=== PATIENT | male | born 1960 | race Hispanic/Latino ===

== ENCOUNTER 2017-03-06 12:09 | Inpatient (IN) | payer MEDICARE ==
[~2017-03-06] VITALS: Ht 157.5 cm; Wt 149.7 kg
[2017-03-06] MEDS ORDERED: IPRATROPIUM/ALBUTEROL SULFATE 3 ML SOLUTION IH ONE (12:32)
[2017-03-06] MEDS ORDERED: ALBUTEROL SULFATE 0.083% 2.5 MG/3 ML INH IH ONE (12:42)
[2017-03-06] MEDS ORDERED: METHYLPREDNISOLONE SOD SUCC 125MG/2ML VIAL ONE (12:43)
[2017-03-06 12:51] LABS: BASOPHILS % (AUTO) 0.9 % (0.0-5.0); EOSINOPHILS % (AUTO) 0.8 % (0.0-8.0); HEMATOCRIT 50.3 % (42-54); LYMPHOCYTES % (AUTO) 19.6 % (21.0-51.0); MEAN CORPUSCULAR HEMOGLOBIN 30.3 pg (27.0-33.0); MEAN CORPUSCULAR VOLUME 91.8 fL (79-99); MONOCYTES % (AUTO) 9.7 % (3.0-13.0); PLATELET COUNT (AUTO) 227 K/uL (130-400); RED BLOOD CELL COUNT(AUTO) 5.48 MIL/uL (4.50-6.20); RED CELL DISTRIBUTION WIDTH 14.7 % (11.0-15.5); WHITE BLOOD COUNT (AUTO) 10.4 K/uL (4.8-10.8)
[2017-03-06 13:00] LABS: ABG BASE EXCESS 1.9 mmol/L (-2.0-3.0); ABG HCO3 31.2 mmol/L (21.0-28.0); ABG OXYGEN SATURATION 90.1 % (95.0-99.0); ABG PCO2 70 mmHg (35-48)
[2017-03-06 13:01] LABS: CREATININE 0.9 mg/dL (0.5-1.5); POTASSIUM 3.9 mmol/L (3.5-5.1)
[2017-03-06 13:05] LABS: INR 1.14 (0.85-1.15); PROTHROMBIN TIME 11.9 SEC (9.6-11.6)
[2017-03-06 13:11] LABS: APPEARANCE,URINE Clear (CLEAR); BILIRUBIN,URINE Negative (NEGATIVE); COLOR,URINE Yellow (YELLOW); GLUCOSE, URINE (UA) Negative (NEGATIVE); KETONES,URINE Negative (NEGATIVE); LEUKOCYTE ESTERASE ,URINE Negative (NEGATIVE); NITRATE,URINE Negative (NEGATIVE); OCCULT BLOOD,URINE Negative (NEGATIVE); PROTEIN,URINE Negative (NEGATIVE); UROBILINOGEN,URINE 0.2 mg/dL (0.2-1.0)
[2017-03-06 13:14] LABS: ALBUMIN 3.1 g/dL (3.5-5.0); BILIRUBIN,TOTAL 0.4 mg/dL (0.2-1.0); CREATINE KINASE MB 1.6 ng/mL (0.5-3.6); TOTAL PROTEIN, SERUM 7.9 g/dL (6.0-8.3)
[2017-03-06 13:50] LABS: B-TYPE NATRIURETIC PEPTIDE 340 pg/mL (0-100)
[2017-03-06] MEDS ORDERED: LACTULOSE 20 GM/30 ML UDCUP PO PRN (15:15)
[2017-03-06] MEDS ORDERED: FUROSEMIDE 10 MG/ML 4ML VIAL IV SCH (15:15)
[2017-03-06] MEDS ORDERED: MAG HYDROX/AL HYDROX/SIMETH ES 30 ML SUSP UDCUP PO PRN (15:15)
[2017-03-06] MEDS ORDERED: GUAIFENESIN-DM 200/20 MG 10 ML PO PRN (15:15)
[2017-03-06] MEDS ORDERED: ACETAMINOPHEN 325 MG TAB PO PRN ×2 (15:15)
[2017-03-06] MEDS ORDERED: ONDANSETRON HCL 4 MG/2 ML VIAL IV PRN (15:15)
[2017-03-06] MEDS ORDERED: AZITHROMYCIN 250 MG TABLET PO ONE (15:19)
[2017-03-06] MEDS ORDERED: FUROSEMIDE 10 MG/ML 4ML VIAL ONE (16:34)
[2017-03-06] MEDS ORDERED: ENOXAPARIN SODIUM 40 MG/0.4 ML SYRINGE SQ ONE (16:35)
[2017-03-06] MEDS ORDERED: LEVOFLOXACIN 500 MG/D5W 100 ML 100 ML ONE (16:35)
[2017-03-06 16:46] LABS: ABG BASE EXCESS 5.9 mmol/L (-2.0-3.0); ABG HCO3 37.2 mmol/L (21.0-28.0); ABG OXYGEN SATURATION 94.8 % (95.0-99.0); ABG PCO2 91 mmHg (35-48)
[2017-03-06] MEDS ORDERED: IOPAMIDOL-370 100 ML VIAL IV ONE (17:16)
[2017-03-06 19:00] VITALS: BP 157/83
[2017-03-06] MEDS: LEVOFLOXACIN 500 MG/D5W 100 ML 100 ML IV SCH (19:00)
[2017-03-06] MEDS: METHYLPREDNISOLONE SOD SUCC 40MG/ML 1ML IVP SCH ×2 (19:15→23:27)
[2017-03-06] MEDS: IPRATROPIUM/ALBUTEROL SULFATE 3 ML SOLUTION IH SCH ×2 (19:36→23:54)
[2017-03-06 20:00] VITALS: BP 152/79
[2017-03-06 20:18] LABS: ABG BASE EXCESS 6.5 mmol/L (-2.0-3.0); ABG HCO3 36.6 mmol/L (21.0-28.0); ABG OXYGEN SATURATION 93.3 % (95.0-99.0); ABG PCO2 81 mmHg (35-48)
[2017-03-06] MEDS: FUROSEMIDE 10 MG/ML 4ML VIAL IV SCH (20:54)
[2017-03-06] MEDS: FAMOTIDINE/PF 20 MG/2 ML VIAL IV SCH (20:54)
[2017-03-06 21:07] VITALS: BP 159/79
[2017-03-06 22:00] VITALS: BP 154/80
[2017-03-06 23:05] VITALS: BP 135/75
[2017-03-07] VITALS (24 sets, daily range): BP systolic 90–158; BP diastolic 41–105
[2017-03-07 04:11] LABS: ABG BASE EXCESS 11.3 mmol/L (-2.0-3.0); ABG PCO2 71 mmHg (35-48)
[2017-03-07 04:11] LABS: HEMATOCRIT 50.5 % (42-54); MEAN CORPUSCULAR HEMOGLOBIN 29.7 pg (27.0-33.0); MEAN CORPUSCULAR HGB CONC 32.4 g/dL (32.0-36.0); MEAN CORPUSCULAR VOLUME 91.4 fL (79-99); PLATELET COUNT (AUTO) 246 K/uL (130-400); RED BLOOD CELL COUNT(AUTO) 5.53 MIL/uL (4.50-6.20); RED CELL DISTRIBUTION WIDTH 14.3 % (11.0-15.5); WHITE BLOOD COUNT (AUTO) 6.2 K/uL (4.8-10.8)
[2017-03-07] MEDS: FUROSEMIDE 10 MG/ML 4ML VIAL IV SCH ×3 (04:17→20:04)
[2017-03-07 04:32] LABS: B-TYPE NATRIURETIC PEPTIDE 158 pg/mL (0-100)
[2017-03-07 04:39] LABS: POTASSIUM 4.2 mmol/L (3.5-5.1)
[2017-03-07] MEDS: METHYLPREDNISOLONE SOD SUCC 40MG/ML 1ML IVP SCH ×3 (06:18→23:27)
[2017-03-07] MEDS: IPRATROPIUM/ALBUTEROL SULFATE 3 ML SOLUTION IH SCH ×4 (06:18→23:34)
[2017-03-07] MEDS: FAMOTIDINE/PF 20 MG/2 ML VIAL IV SCH ×2 (08:49→20:04)
[2017-03-07] MEDS: ENOXAPARIN SODIUM 40 MG/0.4 ML SYRINGE SQ SCH (08:50)
[2017-03-07] MEDS: LEVOFLOXACIN 500 MG/D5W 100 ML 100 ML IV SCH (18:02)
[2017-03-08] VITALS (24 sets, daily range): BP systolic 113–170; BP diastolic 50–89
[2017-03-08 04:02] LABS: POTASSIUM 4.3 mmol/L (3.5-5.1)
[2017-03-08] MEDS: FUROSEMIDE 10 MG/ML 4ML VIAL IV SCH ×3 (04:47→20:45)
[2017-03-08] MEDS: METHYLPREDNISOLONE SOD SUCC 40MG/ML 1ML IVP SCH ×2 (07:01→14:11)
[2017-03-08] MEDS: IPRATROPIUM/ALBUTEROL SULFATE 3 ML SOLUTION IH SCH ×4 (07:22→23:29)
[2017-03-08 08:12] LABS: ABG BASE EXCESS 12.8 mmol/L (-2.0-3.0); ABG HCO3 42.7 mmol/L (21.0-28.0); ABG OXYGEN SATURATION 78.7 % (95.0-99.0); ABG PCO2 81 mmHg (35-48)
[2017-03-08] MEDS: FAMOTIDINE/PF 20 MG/2 ML VIAL IV SCH ×2 (09:05→20:45)
[2017-03-08] MEDS: ENOXAPARIN SODIUM 40 MG/0.4 ML SYRINGE SQ SCH (09:05)
[2017-03-08 12:21] LABS: ABG BASE EXCESS 14.5 mmol/L (-2.0-3.0); ABG HCO3 44.4 mmol/L (21.0-28.0); ABG OXYGEN SATURATION 92.6 % (95.0-99.0); ABG PCO2 81 mmHg (35-48)
[2017-03-08] MEDS: LEVOFLOXACIN 500 MG/D5W 100 ML 100 ML IV SCH (17:01)
[2017-03-09] VITALS (21 sets, daily range): BP systolic 126–174; BP diastolic 54–96
[2017-03-09] MEDS: METHYLPREDNISOLONE SOD SUCC 40MG/ML 1ML IVP SCH ×4 (00:21→22:40)
[2017-03-09 03:52] LABS: HEMATOCRIT 53.3 % (42-54); MEAN CORPUSCULAR HEMOGLOBIN 29.6 pg (27.0-33.0); MEAN CORPUSCULAR HGB CONC 32.2 g/dL (32.0-36.0); MEAN CORPUSCULAR VOLUME 91.7 fL (79-99); PLATELET COUNT (AUTO) 272 K/uL (130-400); RED BLOOD CELL COUNT(AUTO) 5.82 MIL/uL (4.50-6.20); RED CELL DISTRIBUTION WIDTH 14.4 % (11.0-15.5); WHITE BLOOD COUNT (AUTO) 10.6 K/uL (4.8-10.8)
[2017-03-09 04:09] LABS: POTASSIUM 3.9 mmol/L (3.5-5.1)
[2017-03-09 04:31] LABS: B-TYPE NATRIURETIC PEPTIDE 107 pg/mL (0-100)
[2017-03-09] MEDS: FUROSEMIDE 10 MG/ML 4ML VIAL IV SCH ×3 (05:44→20:19)
[2017-03-09] MEDS: IPRATROPIUM/ALBUTEROL SULFATE 3 ML SOLUTION IH SCH ×3 (06:53→19:03)
[2017-03-09 08:19] LABS: ABG HCO3 42.5 mmol/L (21.0-28.0); ABG PCO2 70 mmHg (35-48)
[2017-03-09] MEDS: FAMOTIDINE/PF 20 MG/2 ML VIAL IV SCH ×2 (10:16→20:18)
[2017-03-09] MEDS: ENOXAPARIN SODIUM 40 MG/0.4 ML SYRINGE SQ SCH (10:17)
[2017-03-09] MEDS: LEVOFLOXACIN 500 MG/D5W 100 ML 100 ML IV SCH (19:37)
[2017-03-10] VITALS (13 sets, daily range): BP systolic 115–169; BP diastolic 61–88
[2017-03-10] MEDS: IPRATROPIUM/ALBUTEROL SULFATE 3 ML SOLUTION IH SCH ×4 (00:26→19:31)
[2017-03-10 03:45] LABS: HEMATOCRIT 56.4 % (42-54); MEAN CORPUSCULAR HEMOGLOBIN 29.9 pg (27.0-33.0); MEAN CORPUSCULAR HGB CONC 33.2 g/dL (32.0-36.0); MEAN CORPUSCULAR VOLUME 90.1 fL (79-99); PLATELET COUNT (AUTO) 252 K/uL (130-400); RED BLOOD CELL COUNT(AUTO) 6.26 MIL/uL (4.50-6.20); RED CELL DISTRIBUTION WIDTH 14.6 % (11.0-15.5); WHITE BLOOD COUNT (AUTO) 9.9 K/uL (4.8-10.8)
[2017-03-10 03:54] LABS: POTASSIUM 3.9 mmol/L (3.5-5.1)
[2017-03-10] MEDS: FUROSEMIDE 10 MG/ML 4ML VIAL IV SCH ×3 (04:03→20:10)
[2017-03-10 04:05] LABS: B-TYPE NATRIURETIC PEPTIDE 75 pg/mL (0-100)
[2017-03-10] MEDS: METHYLPREDNISOLONE SOD SUCC 40MG/ML 1ML IVP SCH (06:28)
[2017-03-10] MEDS: FAMOTIDINE/PF 20 MG/2 ML VIAL IV SCH ×2 (09:10→20:10)
[2017-03-10] MEDS: ENOXAPARIN SODIUM 40 MG/0.4 ML SYRINGE SQ SCH (09:10)
[2017-03-10] MEDS: LISINOPRIL 10 MG TABLET PO SCH ×3 (10:20→22:45)
[2017-03-10] MEDS: SERTRALINE HCL 50 MG TABLET PO SCH (10:20)
[2017-03-11] MEDS: IPRATROPIUM/ALBUTEROL SULFATE 3 ML SOLUTION IH SCH ×5 (01:41→23:16)
[2017-03-11 03:00] VITALS: BP 99/56
[2017-03-11 04:04] LABS: CREATININE 1.6 mg/dL (0.5-1.5); POTASSIUM 3.6 mmol/L (3.5-5.1)
[2017-03-11] MEDS: FUROSEMIDE 10 MG/ML 4ML VIAL IV SCH (04:51)
[2017-03-11 07:00] VITALS: BP 106/47
[2017-03-11] MEDS: FUROSEMIDE 20 MG TABLET PO SCH ×2 (10:00→21:03)
[2017-03-11] MEDS: ENOXAPARIN SODIUM 40 MG/0.4 ML SYRINGE SQ SCH (10:11)
[2017-03-11] MEDS: SERTRALINE HCL 50 MG TABLET PO SCH (10:11)
[2017-03-11] MEDS: FAMOTIDINE/PF 20 MG/2 ML VIAL IV SCH ×2 (10:11→21:03)
[2017-03-11 11:00] VITALS: BP 100/63
[2017-03-11] MEDS ORDERED: HYDR-4064 PO (12:52)
[2017-03-11] MEDS ORDERED: ALPR1TAB7 PO (12:52)
[2017-03-11] MEDS ORDERED: BLOOD THINNER (12:55)
[2017-03-11] MEDS ORDERED: FURO20TA4 PO (12:55)
[2017-03-11] MEDS ORDERED: LISI-613 PO (12:55)
[2017-03-11 16:00] VITALS: BP 101/52
[2017-03-11 19:35] VITALS: BP 103/48
[2017-03-11 23:14] VITALS: BP 109/54
[2017-03-12 04:12] VITALS: BP 92/48
[2017-03-12 04:39] LABS: CREATININE 2.8 mg/dL (0.5-1.5); POTASSIUM 3.7 mmol/L (3.5-5.1)
[2017-03-12] MEDS: IPRATROPIUM/ALBUTEROL SULFATE 3 ML SOLUTION IH SCH ×3 (06:56→18:41)
[2017-03-12 07:00] VITALS: BP 100/61
[2017-03-12] MEDS: SERTRALINE HCL 50 MG TABLET PO SCH (08:47)
[2017-03-12] MEDS: FAMOTIDINE/PF 20 MG/2 ML VIAL IV SCH ×2 (08:47→22:00)
[2017-03-12] MEDS: ENOXAPARIN SODIUM 40 MG/0.4 ML SYRINGE SQ SCH (08:48)
[2017-03-12] MEDS ORDERED: FUROSEMIDE 20 MG TABLET ONE (08:51)
[2017-03-12 11:16] VITALS: BP 100/54
[2017-03-12 16:00] VITALS: BP 105/47
[2017-03-12] MEDS ORDERED: FUROSEMIDE 20 MG TABLET PO SCH (17:00)
[2017-03-12 19:36] VITALS: BP 132/75
[2017-03-12 19:39] LABS: CHLORIDE,URINE RANDOM 33 mmol/L (110-250); POTASSIUM,URINE RANDOM 9 mmol/L (25-125); SODIUM,URINE RANDOM 35 mmol/l (40-220)
[2017-03-12 23:44] VITALS: BP 109/60
[2017-03-13] MEDS: IPRATROPIUM/ALBUTEROL SULFATE 3 ML SOLUTION IH SCH ×4 (00:17→19:13)
[2017-03-13 03:37] VITALS: BP 104/60
[2017-03-13 03:42] LABS: HEMATOCRIT 53.9 % (42-54); MEAN CORPUSCULAR HEMOGLOBIN 29.5 pg (27.0-33.0); MEAN CORPUSCULAR HGB CONC 32.9 g/dL (32.0-36.0); MEAN CORPUSCULAR VOLUME 89.8 fL (79-99); NUCLEATED RED BLOOD CELLS 0.1 % (0.0-0.19); PLATELET COUNT (AUTO) 219 K/uL (130-400); RED CELL DISTRIBUTION WIDTH 14.7 % (11.0-15.5); WHITE BLOOD COUNT (AUTO) 12.3 K/uL (4.8-10.8)
[2017-03-13 04:02] LABS: ALBUMIN 3.1 g/dL (3.5-5.0); BILIRUBIN,TOTAL 0.8 mg/dL (0.2-1.0); CREATININE 1.4 mg/dL (0.5-1.5); POTASSIUM 3.6 mmol/L (3.5-5.1); TOTAL PROTEIN, SERUM 7.1 g/dL (6.0-8.3)
[2017-03-13 04:21] LABS: B-TYPE NATRIURETIC PEPTIDE 13 pg/mL (0-100)
[2017-03-13 07:00] VITALS: BP 116/69
[2017-03-13 08:03] LABS: ABG BASE EXCESS 13.1 mmol/L (-2.0-3.0); ABG HCO3 41.8 mmol/L (21.0-28.0); ABG OXYGEN SATURATION 87.5 % (95.0-99.0); ABG PCO2 71 mmHg (35-48)
[2017-03-13] MEDS: SERTRALINE HCL 50 MG TABLET PO SCH (08:32)
[2017-03-13] MEDS: ENOXAPARIN SODIUM 40 MG/0.4 ML SYRINGE SQ SCH (08:32)
[2017-03-13] MEDS: FAMOTIDINE/PF 20 MG/2 ML VIAL IV SCH ×2 (08:32→20:20)
[2017-03-13 11:00] VITALS: BP 133/76
[2017-03-13 16:00] VITALS: BP 165/74
[2017-03-13 19:27] VITALS: BP 135/70
[2017-03-13 23:44] VITALS: BP 114/60
[2017-03-14] MEDS: IPRATROPIUM/ALBUTEROL SULFATE 3 ML SOLUTION IH SCH ×3 (00:08→12:16)
[2017-03-14 03:40] VITALS: BP 120/66
[2017-03-14 07:00] VITALS: BP 110/71
[2017-03-14] MEDS: FAMOTIDINE/PF 20 MG/2 ML VIAL IV SCH (09:32)
[2017-03-14] MEDS: SERTRALINE HCL 50 MG TABLET PO SCH (09:33)
[2017-03-14] MEDS: ENOXAPARIN SODIUM 40 MG/0.4 ML SYRINGE SQ SCH (09:33)
[2017-03-14 11:00] VITALS: BP 140/70
== END 2017-03-14 16:30 | disposition home or self-care (01) | DRG 291 ==
LOC: EDH 12:09 → EDHIP 15:01 → 2DH 16:07 → 2BH 17:33 → 2CH 03-12 04:43
PROVIDERS: ADMIT Family Medicine; ATTEND Family Medicine
PROC: 5A09357 Assistance with Respiratory Ventilation, Less than 24 Consecutive Hours, Continuous Positive Airway Pressure (ICD-10-PCS; principal; 2017-03-06)
PROC: 5A09357 Assistance with Respiratory Ventilation, Less than 24 Consecutive Hours, Continuous Positive Airway Pressure (ICD-10-PCS; 2017-03-08)
PROC: 5A09357 Assistance with Respiratory Ventilation, Less than 24 Consecutive Hours, Continuous Positive Airway Pressure (ICD-10-PCS; 2017-03-09)
PROC: 5A09357 Assistance with Respiratory Ventilation, Less than 24 Consecutive Hours, Continuous Positive Airway Pressure (ICD-10-PCS; 2017-03-10)
PROC: 5A09357 Assistance with Respiratory Ventilation, Less than 24 Consecutive Hours, Continuous Positive Airway Pressure (ICD-10-PCS; 2017-03-11)
PROC: 5A09357 Assistance with Respiratory Ventilation, Less than 24 Consecutive Hours, Continuous Positive Airway Pressure (ICD-10-PCS; 2017-03-12)
PROC: 5A09357 Assistance with Respiratory Ventilation, Less than 24 Consecutive Hours, Continuous Positive Airway Pressure (ICD-10-PCS; 2017-03-13)
PROC: 5A09357 Assistance with Respiratory Ventilation, Less than 24 Consecutive Hours, Continuous Positive Airway Pressure (ICD-10-PCS; 2017-03-14)
DX: I11.0 Hypertensive heart disease with heart failure (principal); J96.22 Acute and chronic respiratory failure with hypercapnia; J96.21 Acute and chronic respiratory failure with hypoxia; N17.9 Acute kidney failure, unspecified; E66.2 Morbid (severe) obesity with alveolar hypoventilation; J44.1 Chronic obstructive pulmonary disease with (acute) exacerbation; Z68.44 Body mass index [BMI] 60.0-69.9, adult; I50.33 Acute on chronic diastolic (congestive) heart failure; F17.200 Nicotine dependence, unspecified, uncomplicated; F32.9 Major depressive disorder, single episode, unspecified; Z91.14 Patient's other noncompliance with medication regimen; Z91.19 Patient's noncompliance with other medical treatment and regimen
CPT/HCPCS: 36415; 36600; 71045; 71046; 71275; 76770; 80048; 80051; 80053; 81003; 82550; 82553; 82803; 82948; 83874; 83880; 84484; 85025; 85027; 85610; 85730; 87040; 93005; 93306; 94640; 94660; 94664; 94760; 97039; J1650; J1940; J1956; J2920; J2930; J3490; Q9967